=== PATIENT | female | born 1940 ===

== ENCOUNTER 2017-08-01 09:36 | Outpatient (CLI) | payer OTHER ==
[~2017-08-01 09:36] MED LIST: ASA81 MG; RALOXIFENE HCL60 MG; ZOCOR40 MG
== END 2017-08-01 09:48 | disposition home or self-care (01) ==
LOC: SONOGRAMA 09:36
DX: E03.8 Other specified hypothyroidism (principal); E04.1 Nontoxic single thyroid nodule

== ENCOUNTER 2017-08-05 11:57 | Outpatient (CLI) | payer OTHER | END 2017-08-05 11:59 | disposition home or self-care (01) | LOC: NUCLEAR 11:57 | DX: M81.0 Age-related osteoporosis without current pathological fracture (principal) ==

== ENCOUNTER 2017-09-02 08:26 | Outpatient (CLI) | payer OTHER | END 2017-09-02 08:32 | disposition home or self-care (01) | LOC: MAMO-SONO 08:26 | DX: N60.11 Diffuse cystic mastopathy of right breast (principal); N60.12 Diffuse cystic mastopathy of left breast; Z80.3 Family history of malignant neoplasm of breast ==

== ENCOUNTER 2017-10-28 08:30 | Outpatient (CLI) | payer OTHER | END 2017-10-28 08:33 | disposition home or self-care (01) | LOC: SONOGRAMA 08:30 | DX: C73 Malignant neoplasm of thyroid gland (principal) ==

== ENCOUNTER 2017-12-02 19:33 | Emergency (ER) | payer OTHER ==
[~2017-12-02] VITALS: Ht 152.4 cm; Wt 51.3 kg
== END 2017-12-02 23:14 | disposition home or self-care (01) ==
LOC: ER 19:33
DX: K29.60 Other gastritis without bleeding (principal)